=== PATIENT | male | born 1970 | race Caucasian/White ===

== ENCOUNTER 2023-05-05 13:51 | Outpatient (OUT) | payer BC, SELFPAY ==
--- NOTE | 2023-05-05 14:00 | PE_ITS ---
[address] [address] Patient Name: NARCISO PRESCOTT MRN: [id number] date: 1970 Sex: M Assigned Patient Location: PETCT Current Patient Location: PETCT Accession/Order Number: [id number] Exam Date: 05/05/2023 15:39 Report Date: 05/06/2023 09:39 At the request of: NELL PETER Procedure: PET skull to mid thigh NUCLEAR MEDICINE PET/CT HISTORY: Left upper lobe lung carcinoma initial staging. COMPARISON: None. METHOD: 14.84 mCi of F-18 FDG was administered intravenously. Blood sugar level at the time of the injection: 108. At 54 minutes from injection, PET images were obtained from the skull base through the midthigh levels in the axial plane. Reformatted images were performed in the sagittal and coronal planes. A low-dose, noncontrast CT scan was performed for attenuation correction and anatomical localization. A low dose, noncontrast and nondiagnostic CT scan was performed for attenuation correction and anatomic localization. Mediastinal blood pool SUV max 2.8 using the patient's body weight as the normalization method. FINDINGS: HEAD AND NECK: There is a left supraclavicular metabolically active lymph node measuring 1.4 x 0.7 cm with a maximum SUV of 17.4. There are other multiple extensive left supraclavicular lymph nodes, conglomerate measuring 4.7 x 2.4 cm. CHEST: There is a metabolically active left upper lobe lung mass which is difficult to accurately measure but measures approximately 10.0 x 5.2 x 12.0 cm with central necrosis and SUV of 29.4. The mass is invading the left jacoby and mediastinum. There are numerous and extensive metabolically active bilateral mediastinal, left hilar, and subcarinal lymph nodes. This includes but is not limited to a right paratracheal 2.3 x 1.2 cm lymph node, anterior mediastinal 1.5 x 0.8 cm lymph node, and subcarinal 4.3 x 2.1 cm lymph node with a maximum SUV of 16.6. There are multiple metabolically active pleural based lesions at the left lung base. There is a left cardiophrenic angle 1.3 x 0.6 cm metabolically active lymph node. There is a large left pleural effusion. The right lung is clear of disease. There is no pneumothorax. ABDOMEN AND PELVIS: There are multiple foci of abnormal increased uptake in the liver. The largest lesion in the right lobe of the liver measures 3.8 x 1.9 cm with a maximum SUV of 8.1. The largest lesion in the left lobe of the liver measuring 5.9 x 3.0 cm with a maximum SUV of 13.4. There are no metabolically active adrenal lesions. There are metabolically active retrocrural, gastrohepatic ligament, and rita hepatis lymph nodes. A rita hepatis lymph node measures 2.9 x 1.4 cm with a maximum SUV of 10.0. There are aortocaval metabolically active retroperitoneal lymph nodes, largest measuring 1.5 x 0.8 cm with a maximum SUV of 13.5. There is no evidence of abnormal metabolic active lymph nodes in the abdomen or pelvis. There is no free fluid. There is physiologic uptake in the urinary system and bowel. The spleen is not visualized however there might be multiple splenules or remnant spleen. There are two foci of increased uptake in the left upper abdomen, the largest measuring 8 x 4 mm. MUSCULOSKELETAL: There are diffuse and extensive metabolically active lesions throughout the bones. This includes the spine, pelvis, femurs, ribs, manubrium, sternum, scapulae, clavicles, and humeri. There are multiple metabolically active lesions in the skull base. PET/PET skull to mid thigh IMPRESSION: Very large necrotic left upper lobe metabolically active lung carcinoma invading the left jacoby and mediastinum. Numerous and extensive metastatic bilateral mediastinal, left hilar, and subcarinal metastatic lymph nodes. Multiple left supraclavicular metastatic lymph nodes. Multiple liver metastasis. Diffuse and extensive bone metastasis. Multiple intraperitoneal and retroperitoneal abdominal lymph node metastasis. Possible splenic metastasis and residual splenic tissue in the left upper quadrant. Left pleural metastasis. Left cardiophrenic angle lymph node metastasis. Large left pleural effusion. Electronically authenticated by: YOSHI MAN Date: 05/06/2023 09:39
== END 2023-05-05 13:52 | disposition home or self-care (01) ==
LOC: PETCT 13:53
PROVIDERS: PCP Nurse Practitioner; Visit Provider Internal Medicine
DX: C34.12 Malignant neoplasm of upper lobe, left bronchus or lung (principal)
CPT/HCPCS: 78815; A9552